=== PATIENT | female | born 1960 | race American Indian/Alaskan Native ===

== ENCOUNTER 2020-11-28 15:48 | Outpatient (CLI) | payer OTHER ==
[~2020-11-28 15:48] MED LIST: ABAT125S SQ; ALEN70TA80 PO; ASPI81TA94; BUPR-317 PO; CALC-793 PO; DIAZ5TAB22 PO; ESCI20TA PO; LANS30CA37 PO; LISI2.5T49; METH-360 PO; MOME17SP BOTHNARES; NORCO10T PO; ONDA4TAB12 PO; RAME8TAB17 PO; TERB250T85 PO; VITA1TAB20 PO
== END 2020-11-28 23:59 | disposition home or self-care (01) ==
LOC: RAD 15:48
PROVIDERS: ATTEND Family Medicine
DX: K21.9 Gastro-esophageal reflux disease without esophagitis (principal); R13.14 Dysphagia, pharyngoesophageal phase
CPT/HCPCS: 74230

== ENCOUNTER 2025-02-15 09:30 | Emergency (ER) | payer MEDICARE, OTHER ==
[~2025-02-15] VITALS: Ht 160 cm; Wt 54.1 kg
[~2025-02-15 09:30] MED LIST changes: -BUPR-317 PO; +BUPR-726 PO; -MOME17SP BOTHNARES; +MOME17SP5 BOTHNARES; +ONDA-243 PO; -ONDA4TAB12 PO; +VITA-290 PO; -VITA1TAB20 PO
[2025-02-15 09:42] VITALS: BP 120/80; PULSE 70; RESP 18; O2SAT 98
--- NOTE | 2025-02-15 10:20 | Physician Documentation ---
History of Present Illness ~ Chief Complaint: Knee Pain Stated Complaint: POST OP KNEE ISSUES Time Seen by MD: 09:46 Primary Medical Doctor: bernardino NGUYEN Patient is seen today with complaints of bilateral knee pain worse on the left side. Patient states she has had bilateral total knee arthroplasties many years ago twice on the left knee. Patient feels her arthroplasty has been wearing out over the last year and more so within the last few months. Patient states she has had pain in the left knee significantly for 10 years. Patient states she takes Percocet 10/325 mg one tab twice a day as needed for pain. Patient states her last Percocet she took was three days ago. She has no other concern or complaint at this time. Denies any fevers or chills. Tetanus witin 5 years: Yes Medication Reconciliation Allergies: Coded Allergies: metoclopramide (Verified Allergy, Unknown, 02/15/25) prochlorperazine edisylate (Unverified Allergy, Unknown, 02/15/25) prochlorperazine maleate (Unverified Allergy, Unknown, 02/15/25) Scheduled Abatacept (Orencia), 1 ML SQ Q30D, (Reported) Alendronate Sodium (Alendronate Sodium), 1 TABLET PO Q7D, (Reported) Aspirin (Aspirin, Enteric Coated), 81 MG DAILY, (Reported) Bupropion HCl (Bupropion Xl), 1 TAB PO DAILY, (Reported) Calcium Carbonate/Vitamin D3 (Vitamin D3 5,000 Unit Tablet), 1 TAB PO DAILY, (Reported) Escitalopram Oxalate (Lexapro), 1 TAB PO DAILY, (Reported) Lansoprazole (Prevacid), 1 CAP PO DAILY, (Reported) Lisinopril* (Lisinopril*), 2.5 MG DAILY, (Reported) Methocarbamol (Robaxin-750), 1 TAB PO Q8H Ramelteon (Rozerem), 8 MG PO HS, (Reported) Terbinafine Hcl (LamISIL tablet), 250 MG PO DAILY, (Reported) Vitamin B Complex (Vitamin B Complex), 1 EACH PO DAILY, (Reported) Scheduled PRN Diazepam* (Valium*), 1 TAB PO DAILY PRN for muscle spasms, (Reported) Hydrocodone Bit/Acetaminophen 10/325 MG* ([place] 10/325 MG*), 1 TAB PO QID PRN for pain, (Reported) Mometasone Furoate* (Nasonex*), 2 SPRAYS BOTHNARES DAILY PRN for nasal c ongestion, (Reported) ONDANSETRON ODT 4mg tablet (Ondansetron Odt), 4 MG PO Q8HPRN PRN for n ausea/vomiting, (Reported) Past Medical History Past Medical History: Coronary Artery Disease, High Cholesterol, Hypertension, Myocardial Infarction, *GI/HEPATOBILIARY*, GERD, Arthritis, Rheumatoid Ar thritis, Anxiety, Depression Past Surgical History: cholecystectomy, orthopedic surgeries Alcohol Use: None Drug Use: none Lives In: Home Review of Systems Constitutional: Denies: chills, fever, weakness Eyes: Denies: pain, blurred vision ENT: Denies: ear pain, nose pain, throat pain, mouth pain Respiratory: Denies: cough, shortness of breath Cardiovascular: Denies: chest pain, palpitations Gastrointestinal: Denies: abdominal pain, nausea, vomiting Genitourinary: Denies: burning, dysuria Female Genitalia: Denies: vaginal discharge, pelvic pain Neurological: Denies: headache, dizziness Musculoskeletal: Denies: pain, swelling Integumentary: Denies: rash, lesions Allergic/Immunologic: Denies: hives, itching Hematologic/Lymphatic: Denies: no symptoms reported Psychiatric: Denies: depression, anxiety Physical Exam Vital Signs: Temperature: 97.6, Source: Temporal, Heart Rate: 70, Respiratory Rate: 18, BP: 120/80, Pulse Oximetry: 98, Weight: 54.090 Physical Exam General: Awake and Alert, no acute distress. HEENT: Conjunctiva pink, Sclera clear, Mucus Membranes moist. Neck: Supple without masses and tenderness. Resp: Unlabored. Lungs clear to auscultation bilaterally. Heart: Regular Rate and rhythm, normal S1 and S2 without murmur, rub or gallop. Musculoskeletal: Patient on exam does have some swelling of the left knee when compared to the contralateral side. Swelling appears chronic in nature. Patient is neurovascularly intact distally. Motor function is intact distally. I do not appreciate any erythema or warmth of the left knee. Extremities: No cyanosis,clubbing or edema. Skin: Warm and Dry. Progress Results/Orders Results/Orders Orders - DASHA HENLEY Knee Limited (Ap/Lat) (02/15/25 10:33) Knee Limited (Ap/Lat) (02/15/25 ) Completed Orders - ADSHA HENLEY PAC Buprenorphine/Naloxone Sl Film (Suboxone (02/15/25 10:31) Knee Limited (Ap/Lat) (02/15/25 10:33) Ondansetron Disint. Tablet (Zofran Odt T (02/15/25 11:01) Knee Limited (Ap/Lat) (02/15/25 ) Medications Received in ER Medications (Trade) Dose Ordered Sig/Baldemar Route PRN Reason Start Time Stop Time Status Last Admin Dose Admin (Suboxone 8MG-2MG SL film) 1 film ONCE STAT SL 02/15/25 10:31 02/15/25 10:37 DC 02/15/25 10:53 1 FILM (Zofran ODT tablet) 8 mg ONCE STAT PO 02/15/25 11:01 02/15/25 11:02 DC 02/15/25 11:32 8 MG Vital Signs 02/15/25 09:42 Temp 97.6 Pulse 70 Resp 18 B/P (MAP) 120/80 Pulse Ox 98 EKG/XRAY/CT/US/VASC/MRI Bone/Soft Tissue X-Ray (Ext.) : Additional Comment X-rays of bilateral knees interpreted by myself today shows bilateral total knee arthroplasties without any sign of loosening hardware, bones in anatomic alignment, joint space on left side appears to be less than that of the right side. DIAGNOSTIC RADIOLOGY Patient: SHARI SALCIDO Medical Record: [id number] : 1960, Age: 64 Sex: Female Location: ER Patient Status: REG ER Service Date/Time: 02/15/251032 Ordering Physician: DASHA HENLEY Exam: KNEE LIMITED (AP/LAT) EXAM: DI KNEE LIMITED (AP/LAT) CLINICAL INDICATION: bilateral knee pain TECHNIQUE: DI KNEE LIMITED (AP/LAT) Comparison: None FINDINGS/IMPRESSION: There is no evidence of acute fracture or dislocation. Right total knee arthroplasty. The alignment is anatomical. There is no radiopaque foreign body. Electronically Signed by:AGGIE MORENO MD Date & Time: 02/15/25 1146 Dictated by: AGGIE MORENO MD Dictation date and time: 02/15/25 1146 Primary Care Provider: NO PRIMARY CARE PROVIDER cc: DASHA HENLEY PAC ~ Medical Decision Making Findings Patient is seen today with complaints of bilateral knee pain worse on the left side. Patient states she has had bilateral total knee arthroplasties many years ago twice on the left knee. Patient feels her arthroplasty has been wearing out over the last year and more so within the last few months. Patient states she has had pain in the left knee significantly for 10 years. Patient states she takes Percocet 10/325 mg one tab twice a day as needed for pain. Patient states her last Percocet she took was three days ago. She has no other concern or complaint at this time. Denies any fevers or chills. Patient was given dose of Suboxone 8/2 mg film sublingual in the ED today. Patient noticed almost immediate relief of pain of her shoulders and knees. Prescription of Suboxone sent to patient's pharmacy. Patient will follow up with primary care for referral to pharmacy specialist for further eval and treatment of left knee pain. Patient will return to ED with any worsening, concerning or changing symptoms. Prescription of Zofran also sent to patient pharmacy. Knee Diff Dx:Considerations: Include: Abrasion, Arthritis, Contusion, DJD, Fracture-femur, Fracture-fibula, Fracture-patella, Gout, Hematoma, Neurovascular injury, Septic Departure Disposition: 01 HOME / SELF CARE / HOMELESS Impression: Primary Impression: Knee pain Qualified Codes: M25.561 - Pain in right knee; M25.562 - Pain in left knee; G89.29 - Other chronic pain Condition: Improved Discharge Instructions: Arthritis Additional Instructions: Patient was given dose of Suboxone 8/2 mg film sublingual in the ED today. Patient noticed almost immediate relief of pain of her shoulders and knees. Prescription of Suboxone sent to patient's pharmacy. Patient will follow up with primary care for referral to pharmacy specialist for further eval and treatment of left knee pain. Patient will return to ED with any worsening, co ncerning or changing symptoms. Prescription of Zofran also sent to patient pharmacy. Referrals: NO PRIMARY CARE PROVIDER (PCP) Prescriptions ONDANSETRON ODT 4mg tablet (ONDANSETRON ODT) 4 Mg Tab.rapdis 1 TAB PO Q6H PRN PRN for nausea/vomiting for 4 Days, #16 TAB 0 Refills Prov: DASHA HENLEY 02/15/25 Buprenorphine Hcl/Naloxone Hcl (Suboxone 8 Mg-2 Mg Sl Film) 8 Mg-2 Mg Film 1 STRIP SL TID for 7 Days, #21 STRIP Prov: DASHA HENLEY 02/15/25 Signature Scribe Signature: No scribe Attestation: No scribe DASHA HENLEY Feb 15, 2025 10:20
[2025-02-15] MEDS: buprenorphine/naloxone 8MG-2MG SUBlingual film SL STA (10:53)
[2025-02-15] MEDS: ondansetron 4mg rapidly disintigrating tab PO STA (11:32)
--- NOTE | 2025-02-15 11:47 | RADIOLOGY REPORT ---
EXAM: DI KNEE LIMITED (AP/LAT) CLINICAL INDICATION: PAIN TECHNIQUE: DI KNEE LIMITED (AP/LAT) Comparison: None FINDINGS/IMPRESSION: There is no evidence of acute fracture or dislocation. The visualized joint space is well maintained. Right total knee arthroplasty. There is no radiopaque foreign body.
--- NOTE | 2025-02-15 11:49 | RADIOLOGY REPORT ---
EXAM: DI KNEE LIMITED (AP/LAT) CLINICAL INDICATION: bilateral knee pain TECHNIQUE: DI KNEE LIMITED (AP/LAT) Comparison: None FINDINGS/IMPRESSION: There is no evidence of acute fracture or dislocation. Right total knee arthroplasty. The alignment is anatomical. There is no radiopaque foreign body.
[2025-02-15] MEDS ORDERED: BUPR1FIL3 SL (11:54)
[2025-02-15] MEDS ORDERED: ONDA-243 PO (11:56)
[2025-02-15 12:01] VITALS: TEMP 97.6
[2025-02-15] MEDS ORDERED: SENN-302 PO (12:04)
[2025-02-15] MEDS ORDERED: POLY119P2 PO (12:04)
== END 2025-02-15 12:04 | disposition home or self-care (01) ==
LOC: ER 09:31
DX: M25.561 Pain in right knee (principal); M25.562 Pain in left knee; K21.9 Gastro-esophageal reflux disease without esophagitis; F32.A Depression, unspecified; F41.9 Anxiety disorder, unspecified; E78.00 Pure hypercholesterolemia, unspecified; I10 Essential (primary) hypertension; I25.10 Atherosclerotic heart disease of native coronary artery without angina pectoris; I25.2 Old myocardial infarction; M06.9 Rheumatoid arthritis, unspecified; Z88.8 Allergy status to other drugs, medicaments and biological substances; Z90.49 Acquired absence of other specified parts of digestive tract
CPT/HCPCS: 73560; 99284